=== PATIENT | female | born 1975 | race Hispanic/Latino ===

== ENCOUNTER 2018-12-04 12:31 | Inpatient (IN) | payer SELFPAY ==
[~2018-12-04] VITALS: Ht 152.4 cm; Wt 83.9 kg
[2018-12-04] MEDS: SODIUM CHLORIDE 0.9% 1000ML 1,000 ML IV SCH (02:15)
[2018-12-04] MEDS ORDERED: SODIUM CHLORIDE 0.9% 1000ML 1,000 ML IV STA ×2 (12:51→13:51)
[2018-12-04] MEDS ORDERED: KETOROLAC TROMETHAMINE 30 MG/ML VIAL IV ONE (13:00)
[2018-12-04 13:22] LABS: BASOPHILS % 0.1 % (0.0-1.0); EOSINOPHILS # (AUTO) 0.1 (0.0-0.4); EOSINOPHILS % 0.2 % (0.0-6.0); HEMATOCRIT 29.9 % (34.2-44.1); HEMOGLOBIN 8.9 g/dL (12.0-16.0); LYMPHOCYTES # (AUTO) 0.8 (1.0-3.2); LYMPHOCYTES % 3.3 % (18.0-39.1); MEAN CORPUSCULAR HEMOGLOBIN 19.3 pg (28-32); MEAN CORPUSCULAR HGB CONC 29.8 g/dL (31-35); MONOCYTES # (AUTO) 1.3 (0.2-0.8); MONOCYTES % 5.4 % (4.4-11.3); PLATELET COUNT 313 x10e3/uL (140-360); RED CELL DISTRIBUTION WIDTH 17.4 % (11.7-14.4)
[2018-12-04 13:25] LABS: BILIRUBIN,URINE NEGATIVE (NEGATIVE); CLARITY,URINE SL CLOUDY (CLEAR); COLOR,URINE YELLOW (YELLOW); KETONES,URINE NEGATIVE (NEGATIVE); LEUKOCYTE ESTERASE ,URINE SMALL (NEGATIVE); NITRITE,URINE POSITIVE (NEGATIVE); PROTEIN,URINE DIPSTICK TRACE (NEGATIVE); URINE UROBILINOGEN 0.2 mg/dL (0.2 - 1)
[2018-12-04] MEDS ORDERED: ACETAMINOPHEN 325 MG TAB PO ONE (13:30)
[2018-12-04 13:33] LABS: STREPTOCOCCUS GRP A ANTIGEN NEGATIVE (NEGATIVE)
[2018-12-04 13:37] LABS: AMORPHOUS SEDIMENT,URINE MODERATE (FEW); BACTERIA,URINE MANY /HPF; EPITHELIAL CELLS,URINE MODERATE /LPF; RBC,URINE 0-5 /HPF (0-5)
[2018-12-04 13:38] LABS: ALANINE AMINOTRANSFERASE 20 IU/L (0-55); ALBUMIN 3.6 g/dL (3.5-5.0); ALBUMIN/GLOBULIN RATIO 0.8 (0.8-2.0); ALKALINE PHOSPHATASE 107 IU/L (40-150); ANION GAP 17.4 mmol/L (8-16); BLOOD UREA NITROGEN 6 mg/dL (7-26); BUN/CREATININE RATIO 7 (6-25); CARBON DIOXIDE 20 mmol/L (22-29); CHLORIDE 94 mmol/L (98-107); CREATINE KINASE 41 IU/L (29-168); CREATININE, SERUM 0.81 mg/dL (0.57-1.11); EST GLOMERULAR FILTRATION RATE > 60 ML/MIN (60-); GLUCOSE 165 mg/dL (74-118); POTASSIUM 3.4 mmol/L (3.5-5.1); SODIUM 128 mmol/L (136-145)
[2018-12-04 13:44] LABS: INFLUENZAE A&B ANTIGEN (RAPID) NEGATIVE (NEGATIVE)
--- NOTE | 2018-12-04 13:45 | Diagnostic Imaging Report ---
Examination: CT BRAIN WO CONTRAST History:Headache and weakness Comparison studies:None Technique: Axial images were obtained from the skull base to the vertex. Coronal and sagittal images reconstructed from the axial data. Dose modulation, iterative reconstruction, and/or weight based adjustment of the mA/kV was utilized to reduce the radiation dose to as low as reasonably achievable. Intravenous contrast: None Findings: Scalp: No abnormalities. Bones: No fractures, blastic or lytic lesions. Brain sulci: Appropriate for age. Ventricles: Normal in size and configuration. No hydrocephalus. Extra-axial space: No abnormalities. Parenchyma: No abnormal densities. No masses, hemorrhage, or acute or chronic cortical based vascular insults.. Sellar/suprasellar region: No abnormalities. Craniocervical junction: Patent foramen magnum. No Chiari one malformation. Incidental findings: None. Impression: No intracranial abnormalities. Signed by: Dr. Carol Longoria M.D. on 12/04/2018 1:41 PM
--- NOTE | 2018-12-04 13:51 | Diagnostic Imaging Report ---
EXAMINATION: CHEST SINGLE (PORTABLE) INDICATION: Pain COMPARISON: None FINDINGS: TUBES and LINES: EKG leads overlie the chest. LUNGS: The lung volumes are normal. No focal consolidation or pulmonary edema. PLEURA: No pleural effusion or pneumothorax. HEART AND MEDIASTINUM: The cardiomediastinal silhouette is normal in size and contour. BONES AND SOFT TISSUES: No acute fracture or dislocation. UPPER ABDOMEN: No free air under the diaphragm. IMPRESSION: No focal pneumonia or pulmonary edema. Signed by: Erica Linares MD on 12/04/2018 1:47 PM
[2018-12-04] MEDS ORDERED: METOCLOPRAMIDE HCL 10 MG/2ML VIAL IV ONE (14:00)
[2018-12-04] MEDS ORDERED: CEFTRIAXONE SOD 1 GM VIAL IV ONE (14:00)
--- NOTE | 2018-12-04 14:06 | NUR ---
Lab contacted to draw Lactic
[2018-12-04] MEDS ORDERED: CEFTRIAXONE SOD 2 GM/NS 100 ML 100 ML IV ONE (14:30)
[2018-12-04] MEDS ORDERED: VANCOMYCIN 1GM/NS 250 ML 250 ML IV ONE (15:00)
[2018-12-04] MEDS ORDERED: LIDOCAINE HCL 1% LOCAL INJ 20 ML VIAL ONE (15:16)
[2018-12-04] MEDS ORDERED: ONDANSETRON HCL INJ 2MG/ML 2ML 2 MG/ML VIAL IV PRN (15:30)
[2018-12-04] MEDS ORDERED: DIPHENHYDRAMINE HCL INJ 50 MG/ML VIAL IV PRN (15:30)
--- OUTSIDE RECORDS SUMMARY | 2018-12-04 15:38 | XMS REPORT ---
[facility] Address Unknown Phone Unavailable Care Team Providers [facility] Name Role Phone Bianka PALACIOS Unavailable Unavailable Problems This patient has no known problems. Allergies, Adverse Reactions, Alerts This patient has no known allergies or adverse reactions. Medications This patient has no known medications. Results Test Description Test Time Test Comments Text Results Atomic Results Result Comments CHEST SINGLE (PORTABLE) 2018-12-04 13:46:00 [place] [address] Patient Name: DAMEON BUCK MR #: [id number] : 1975 Age/Sex: 43/F Req #: [id number] Adm Physician: Ordered by: BRUNO QUEEN TUMBLERS SUPERVISOR Report #: [id number] Location: ER Room/Bed: Procedure: [id number] DX/CHEST SINGLE (PORTABLE) Exam Date: Exam Time: REPORT STATUS: Signed EXAMINATION: CHEST SINGLE (PORTABLE) INDICATION: Pain COMPARISON: None FINDINGS: TUBES and LINES: EKG leads overlie the chest. LUNGS: The lung volumes are normal. No focal consolidation or pulmonary edema. PLEURA: No pleural effusion or pneumothorax. HEART AND MEDIASTINUM: The cardiomediastinal silhouette is normal in size and contour. BONES AND SOFT TISSUES: No acute fracture or dislocation. UPPER ABDOMEN: No free air under the diaphragm. IMPRESSION: No focal pneumonia or pulmonary edema. Signed by: Doug Linares MD on 12/04/2018 1:47 PM Dictated By: DOUG LINARES MD 134 Transcribed By: ERIC on 12/04/187 COPY TO: BRUNO QUEEN TUMBLERS SUPERVISOR CT BRAIN WO 2018-12-04 13:41:00 [place] [address] Patient Name: DAMEON BUCK MR #: [id number] : 1975 Age/Sex: 43/F Req #: [id number] Adm Physician: Ordered by: BRUNO QUEEN TUMBL[employer] SUPERVISOR Report #: [id number] Location: ER Room/Bed: Procedure: [id number] CT/CT BRAIN WO Exam Date: 12/04/18 Exam Time: 1320 REPORT STATUS: Signed Examination: CT BRAIN WO CONTRAST History:Headache and weakness Comparison studies:None Technique: Axial images were obtained from the skull base to the vertex. Coronal and sagittal images reconstructed from the axial data. Dose modulation, iterative reconstruction, and/or weight based adjustment of the mA/kV was utilized to reduce the radiation dose to as low as reasonably achievable. Intravenous contrast: None Findings: Scalp: No abnormalities. Bones: No fractures, blastic or lytic lesions. Brain sulci: Appropriate for age. Ventricles: Normal in size and configuration. No hydrocephalus. Extra-axial space: No abnormalities. Parenchyma: No abnormal densities. No masses, hemorrhage, or acute or chronic cortical based vascular insults.. Sellar/suprasellar region: No abnormalities. Craniocervical junction: Patent foramen magnum. No Chiari one malformation. Incidental findings: None. Impression: No intracranial abnormalities. Signed by: Dr. Carol Longoria M.D. on 019 1:41 PM Dictated By: CAROL HEATH MD 40 Transcribed By: ERIC on 12/04/181340 COPY TO: BRUNO QUEEN NP
[2018-12-04 15:51] LABS: TOTAL PROTEIN,CSF 19.6 mg/dL (15-40)
[2018-12-04 15:59] LABS: APPEARANCE,CSF CLEAR (CLEAR); COLOR,CSF COLORLESS (COLORLESS); TUBE NUMBER 3
[2018-12-04 16:00] LABS: WHITE BLOOD CELL,CSF 1 cells/uL (0-5)
[2018-12-04 16:57] LABS: ANISOCYTOSIS SLIGHT; BAND NEUTROPHILS % (MANUAL) 1 %; HYPOCHROMASIA SLIGHT; LYMPHOCYTES % (MANUAL) 6 % (19-48); MONOCYTES % (MANUAL) 4 % (3.4-9.0); NEUTROPHILS % (MANUAL) 88 % (40-74)
[2018-12-04 16:58] LABS: PLATELET ESTIMATE ADEQUATE; PLATELET MORPHOLOGY COMMENT NORMAL; RBC MORPHOLOGY COMMENT NORMAL
[2018-12-04] MEDS: FAMOTIDINE 20 MG/2 ML VIAL IV SCH (17:04)
[2018-12-04 17:44] VITALS: BP 91/49
[2018-12-04] MEDS ORDERED: SEROQUEL25 MG PO (18:16)
[2018-12-04] MEDS ORDERED: PLAQUENIL200 MG PO (18:16)
[2018-12-04] MEDS ORDERED: AMBIEN10 MG PO (18:16)
--- NOTE | 2018-12-04 19:30 | NUR ---
Pt visited in room during nursing rounds. Patient alert and oriented x3. Pt ambulatory in room prn. IVF (NS at 125ml/hr) infusing. Pt on scheduled IV antibiotic. Call ceron within reach. Will monitor closely.
[2018-12-04 20:00] VITALS: BP 121/60
[2018-12-04] MEDS: CEFTRIAXONE SOD 1 GM/NS 50 ML 50 ML IV SCH (20:45)
[2018-12-04] MEDS ORDERED: CEFTRIAXONE SOD 1 GM VIAL IV SCH (21:00)
[2018-12-04] MEDS: IBUPROFEN 200 MG TAB PO PRN (22:20)
[2018-12-05] VITALS (8 sets, daily range): BP systolic 93–119; BP diastolic 55–62
[2018-12-05 06:25] LABS: BASOPHILS % 0.1 % (0.0-1.0); EOSINOPHILS # (AUTO) 0.1 (0.0-0.4); EOSINOPHILS % 0.4 % (0.0-6.0); HEMATOCRIT 26.9 % (34.2-44.1); HEMOGLOBIN 7.6 g/dL (12.0-16.0); LYMPHOCYTES # (AUTO) 1.4 (1.0-3.2); MEAN CORPUSCULAR HGB CONC 28.3 g/dL (31-35); MEAN CORPUSCULAR VOLUME 67.1 fL (81-99); MONOCYTES # (AUTO) 1.7 (0.2-0.8); MONOCYTES % 6.2 % (4.4-11.3); NEUTROPHILS # (AUTO) 23.4 (2.1-6.9); NEUTROPHILS % 86.8 % (38.7-80.0); PLATELET COUNT 253 x10e3/uL (140-360); RED BLOOD COUNT 4.01 x10e6/uL (3.6-5.1); RED CELL DISTRIBUTION WIDTH 17.8 % (11.7-14.4)
[2018-12-05 06:47] LABS: ANION GAP 12.7 mmol/L (8-16); BLOOD UREA NITROGEN 7 mg/dL (7-26); BUN/CREATININE RATIO 9 (6-25); CALCIUM 8.1 mg/dL (8.4-10.2); CARBON DIOXIDE 21 mmol/L (22-29); CHLORIDE 104 mmol/L (98-107); CREATININE, SERUM 0.79 mg/dL (0.57-1.11); EST GLOMERULAR FILTRATION RATE > 60 ML/MIN (60-); GLUCOSE 96 mg/dL (74-118); POTASSIUM 3.7 mmol/L (3.5-5.1); SODIUM 134 mmol/L (136-145)
[2018-12-05 08:35] LABS: BAND NEUTROPHILS % (MANUAL) 17 %; LYMPHOCYTES % (MANUAL) 7 % (19-48); MONOCYTES % (MANUAL) 4 % (3.4-9.0); NEUTROPHILS % (MANUAL) 71 % (40-74)
[2018-12-05 08:37] LABS: ANISOCYTOSIS MODERATE; PLATELET ESTIMATE ADEQUATE; PLATELET MORPHOLOGY COMMENT NORMAL; POLYCHROMASIA FEW; RBC MORPHOLOGY COMMENT NORMAL
[2018-12-05 08:38] LABS: HYPOCHROMASIA MODERATE; POIKILOCYTOSIS SLIG
[2018-12-05] MEDS: CEFTRIAXONE SOD 1 GM/NS 50 ML 50 ML IV SCH ×2 (08:51→21:08)
[2018-12-05] MEDS: FAMOTIDINE 20 MG/2 ML VIAL IV SCH ×2 (08:51→17:13)
[2018-12-05] MEDS: ACETAMINOPHEN 325 MG TAB PO PRN ×2 (09:59→17:13)
[2018-12-05] MEDS ORDERED: CYMBALTA30 MG PO (10:47)
--- NOTE | 2018-12-05 16:20 | NUR ---
Visit made by the Spiritual Care Department Pastoral Visitor, Neyda Burnett. PV provided pastoral presence, prayer, hospitality, and supportive listening. Pastoral Visitor informed pt/family of the scope of Chronic Care Nurse Services and availability. EMETERIO ARTEAGA [employer] Spiritual Care Department O: [phone] Pager: [phone] ([phone] number calling from)
--- NOTE | 2018-12-05 17:30 | NUR ---
New IV started on right AC 20g and well tolerated. Denies any pain at this time. Continues on IVF 125ml/hr and well tolerated.
[2018-12-05] MEDS: IBUPROFEN 200 MG TAB PO PRN (19:52)
[2018-12-05] MEDS: DULOXETINE HCL 30 MG DELAYED RELEASE PO SCH (21:06)
[2018-12-05] MEDS: ZOLPIDEM TARTRATE 5 MG TAB PO PRN (21:09)
[2018-12-05] MEDS: SODIUM CHLORIDE 0.9% 1000ML 1,000 ML IV SCH (22:25)
[2018-12-06] VITALS (8 sets, daily range): BP systolic 96–131; BP diastolic 55–64
[2018-12-06 06:42] LABS: BASOPHILS % 0.2 % (0.0-1.0); EOSINOPHILS # (AUTO) 0.1 (0.0-0.4); EOSINOPHILS % 0.8 % (0.0-6.0); HEMATOCRIT 23.1 % (34.2-44.1); LYMPHOCYTES # (AUTO) 2.1 (1.0-3.2); LYMPHOCYTES % 12.3 % (18.0-39.1); MEAN CORPUSCULAR VOLUME 65.6 fL (81-99); MONOCYTES # (AUTO) 1.4 (0.2-0.8); MONOCYTES % 8.7 % (4.4-11.3); NEUTROPHILS # (AUTO) 12.8 (2.1-6.9); PLATELET COUNT 225 x10e3/uL (140-360); RED BLOOD COUNT 3.52 x10e6/uL (3.6-5.1); RED CELL DISTRIBUTION WIDTH 17.9 % (11.7-14.4)
--- NOTE | 2018-12-06 06:56 | NUR ---
RECEIVED PATIENT RESTING IN BED. RESPIRATIONS EVEN AND UNLABORED, NO ACUTE DISTRESS NOTED. NO S/S OF PAIN OR DISCOMFORT NOTED AT THIS TIME. FAMILY MEMBER AT BEDSIDE. CALL LIGHT WITHIN REACH. BED IN THE LOWEST POSITION.
[2018-12-06 07:06] LABS: HEMOGLOBIN 6.7 g/dL (12.0-16.0)
[2018-12-06 07:14] LABS: ALANINE AMINOTRANSFERASE 19 IU/L (0-55); ALBUMIN 2.4 g/dL (3.5-5.0); ALBUMIN/GLOBULIN RATIO 0.7 (0.8-2.0); ALKALINE PHOSPHATASE 94 IU/L (40-150); ANION GAP 12.3 mmol/L (8-16); BLOOD UREA NITROGEN 6 mg/dL (7-26); BUN/CREATININE RATIO 9 (6-25); CALCIUM 8.1 mg/dL (8.4-10.2); CARBON DIOXIDE 21 mmol/L (22-29); CHLORIDE 109 mmol/L (98-107); CREATININE, SERUM 0.66 mg/dL (0.57-1.11); EST GLOMERULAR FILTRATION RATE > 60 ML/MIN (60-); GLUCOSE 95 mg/dL (74-118); POTASSIUM 3.3 mmol/L (3.5-5.1); SODIUM 139 mmol/L (136-145)
--- NOTE | 2018-12-06 07:15 | NUR ---
BEDSIDE SHIFT REPORT GIVEN TO ONCOMING NURSE.PT RESTING IN BED WITH NO S/S OF DISTRESS.
--- NOTE | 2018-12-06 07:20 | NUR ---
DR ROACH PAGED AT THIS TIME TO REPORT CRITICAL LAB.
[2018-12-06] MEDS: SODIUM CHLORIDE 0.9% 1000ML 1,000 ML IV SCH ×2 (07:23→23:23)
[2018-12-06] MEDS ORDERED: SODIUM CHLORIDE 0.9% 250ML 250 ML IV NR (07:30)
--- NOTE | 2018-12-06 07:30 | NUR ---
SPOKE WITH DR ROACH NOTIFIED ABOUT HEMOGLOBIN LEVEL.N/O'S RECEIVED AND ENTERED.NOTIFIED ONCOMING NURSE.
[2018-12-06] MEDS ORDERED: POTASSIUM CHLORIDE 20 MEQ TAB CR PO STA (07:41)
[2018-12-06] MEDS ORDERED: POTASSIUM CHLORIDE 20 MEQ TAB CR PO NR (08:00)
[2018-12-06] MEDS: CEFTRIAXONE SOD 1 GM/NS 50 ML 50 ML IV SCH ×2 (08:29→21:00)
[2018-12-06] MEDS: FAMOTIDINE 20 MG/2 ML VIAL IV SCH (08:29)
[2018-12-06] MEDS: ACETAMINOPHEN 325 MG TAB PO PRN ×2 (10:11→20:13)
[2018-12-06] MEDS ORDERED: SODIUM CHLORIDE 0.9% 250ML 250 ML ONE (10:46)
[2018-12-06 14:57] LABS: HEMATOCRIT 27.3 % (34.2-44.1); HEMOGLOBIN 8.2 g/dL (12.0-16.0)
[2018-12-06] MEDS ORDERED: ONDANSETRON HCL 4 MG ORAL DISINTEGRATING TAB PO PRN (17:15)
[2018-12-06] MEDS ORDERED: FAMOTIDINE 20 MG TAB PO SCH (17:30)
[2018-12-06] MEDS ORDERED: IBUPROFEN 400 MG TAB PO PRN (17:30)
[2018-12-06] MEDS ORDERED: KETOROLAC TROMETHAMINE 30 MG/ML VIAL IM STA (17:37)
[2018-12-06] MEDS ORDERED: KETOROLAC TROMETHAMINE 30 MG/ML VIAL IM PRN (17:45)
--- NOTE | 2018-12-06 17:45 | NUR ---
NOTIFIED DR. ROACH THAT WE ARE UNABLE TO GET IV ACCESS FOR PATIENT. PER MD ORDER PICC LINE. ORDER PLACED. PATIENT SIGNED CONSENT.
[2018-12-06] MEDS ORDERED: KETOROLAC TROMETHAMINE 30 MG/ML VIAL IV PRN (18:45)
--- NOTE | 2018-12-06 19:26 | NUR ---
REPORT GIVEN TO ONCOMING NURSE. WALKING ROUNDS DONE. PATIENT IS RESTING IN BED. NO ACUTE DISTRESS NOTED. FAMILY AT BEDSIDE. CALL LIGHT WITHIN REACH. BED IN THE LOWEST POSITION.
[2018-12-06] MEDS: DULOXETINE HCL 30 MG DELAYED RELEASE PO SCH (20:11)
[2018-12-06] MEDS: ZOLPIDEM TARTRATE 5 MG TAB PO PRN (21:12)
[2018-12-07] VITALS: BP 92/54
[2018-12-07 03:50] VITALS: BP 95/52
--- NOTE | 2018-12-07 06:15 | Diagnostic Imaging Report ---
EXAMINATION: CHEST XRAY LINE PLACEMENT INDICATION: picc placement COMPARISON: Chest radiograph 12/04/2018 FINDINGS: AP view TUBES and LINES: Left upper extremity PICC placement with tip in the cavoatrial junction. LUNGS: Low lung volumes with vascular crowding. No consolidation. PLEURA: No pleural effusion or pneumothorax. HEART AND MEDIASTINUM: The cardiomediastinal silhouette is unremarkable. BONES AND SOFT TISSUES: No acute osseous lesion. Soft tissues are unremarkable. UPPER ABDOMEN: No free air under the diaphragm. IMPRESSION: Left upper extremity PICC placement with tip in the cavoatrial junction. Low lung volumes with vascular crowding. Signed by: Ralf Monteiro DO on 12/07/2018 6:11 AM
[2018-12-07 06:34] LABS: BASOPHILS % 0.2 % (0.0-1.0); EOSINOPHILS # (AUTO) 0.2 (0.0-0.4); EOSINOPHILS % 1.8 % (0.0-6.0); HEMATOCRIT 24.5 % (34.2-44.1); HEMOGLOBIN 7.5 g/dL (12.0-16.0); LYMPHOCYTES # (AUTO) 1.8 (1.0-3.2); LYMPHOCYTES % 17.8 % (18.0-39.1); MEAN CORPUSCULAR HEMOGLOBIN 20.6 pg (28-32); MEAN CORPUSCULAR HGB CONC 30.6 g/dL (31-35); MEAN CORPUSCULAR VOLUME 67.3 fL (81-99); MONOCYTES # (AUTO) 0.8 (0.2-0.8); MONOCYTES % 7.7 % (4.4-11.3); NEUTROPHILS # (AUTO) 7.1 (2.1-6.9); NEUTROPHILS % 71.2 % (38.7-80.0); PLATELET COUNT 235 x10e3/uL (140-360); RED BLOOD COUNT 3.64 x10e6/uL (3.6-5.1); RED CELL DISTRIBUTION WIDTH 19.9 % (11.7-14.4)
--- NOTE | 2018-12-07 06:54 | NUR ---
RECEIVED PATIENT RESTING IN BED WITH HER EYES CLOSED. NO ACUTE DISTRESS NOTED. FAMILY AT BEDSIDE. NO S/S OF PAIN OR DISCOMFORT NOTED AT THIS TIME. CALL LIGHT WITHIN REACH. BED IN THE LOWEST POSITION.
[2018-12-07 07:03] LABS: ALANINE AMINOTRANSFERASE 17 IU/L (0-55); ALBUMIN 2.3 g/dL (3.5-5.0); ALBUMIN/GLOBULIN RATIO 0.7 (0.8-2.0); ALKALINE PHOSPHATASE 85 IU/L (40-150); ANION GAP 12.5 mmol/L (8-16); BLOOD UREA NITROGEN 5 mg/dL (7-26); BUN/CREATININE RATIO 8 (6-25); CALCIUM 7.8 mg/dL (8.4-10.2); CARBON DIOXIDE 21 mmol/L (22-29); CHLORIDE 107 mmol/L (98-107); CREATININE, SERUM 0.59 mg/dL (0.57-1.11); EST GLOMERULAR FILTRATION RATE > 60 ML/MIN (60-); GLUCOSE 85 mg/dL (74-118); POTASSIUM 3.5 mmol/L (3.5-5.1); SODIUM 137 mmol/L (136-145)
--- NOTE | 2018-12-07 07:15 | NUR ---
DURING PHYSICAL ASSESSMENT PATIENT C/O PAIN OF 5/10, ASKED PATIENT IF SHE WOULD LIKE TO GET HER PAIN MEDICATION NOW OR WAIT FOR MORNING MEDICATIONS, PER PATIENT OK TO WAIT UNTIL MORNING MEDICINES.
[2018-12-07 07:55] VITALS: BP 148/95
[2018-12-07 07:57] VITALS: BP 109/58
[2018-12-07 08:04] VITALS: BP 109/58
[2018-12-07] MEDS ORDERED: GABAPENTIN 100 MG CAP PO SCH (09:00)
--- NOTE | 2018-12-07 09:12 | NUR ---
PATIENT REQUESTING TO LEAVE AMA. PER PATIENT HER PAIN IS NOT GETTING BETTER AND MD IS NOT TRYING TO FIGURE OUT WHERE THE PAIN IS COMING FROM. PICC LINE TO LEFT UPPER ARM DCD WITH TIP INTACT, PRESSURE DRESSING APPLIED TO SITE, NO BLEEDING NOTED. PATIENT SIGNED AMA FORM. PATIENT WALKED OUT OF ROOM AT THIS TIME WITH FAMILY MEMBER.
--- NOTE | 2018-12-07 09:14 | NUR ---
DR. ROACH NOTIFIED OF PATIENT LEAVING AGAINST MEDICAL ADVICE.
--- NOTE | 2018-12-07 09:27 | NUR ---
GAVE PACKET OF INFORMATION WITH [facility] [employer] FOR ASSISTANCE WITH LOW TO NO INCOME TO PATIENT. RESOURCES THAT PATIENT MAY BE ABLE TO FOLLOW UP UPON DISCHARGE. PT EDUCATED ON EACH RESOURCE AND UNDERSTANDING HOW TO FOLLOW UP TO SEE IF QUALIFIED FOR EACH RESOURCE.
--- NOTE | 2018-12-11 10:24 | Discharge Summary ---
AMA DIAGNOSIS: Sepsis secondary to urinary tract infection. HISTORY OF PRESENT ILLNESS AND HOSPITAL COURSE: See hospital chart for full details. The patient is a lady, who presented with fever, muscle aches, and headache, where she was brought in and had a cranial CT done and that was unremarkable. Had lumbar tap done that was also unremarkable. She did have evidence of urinary tract infection that did grow out E. coli, so she was placed on IV antibiotics when she presented, which was appropriate for the infection that she had. She would still have evidence of fevers at nighttime, but for the most part of the day she was doing well. She was still complaining of some headache, so I was making adjustments to her medication regimen when I got a call from nursing staff stating she walked out against medical advice. She was frustrated that she was still having the headache, which I had told her that due to her overwhelming illness, whole-body aches and headaches were not uncommon in her LP, and I reassured her about her LP being negative, her cranium CT being negative, but I was in the process of doing further workup which I explained to her and she seemed to be happy with, but then unfortunately hours later the patient left AMA. I tried to call the patient and my staff has tried to call the patient and she has not answered the phone nor returned our call, so I went ahead and called in the appropriate p.o. antibiotic for her urinary tract infection. I am hoping that she picked it up and has taken it, but unfortunately this is the patient's own choice, which was an unwise choice and therefore she left AMA. MD RAHEEM Bird/RADHA /[id number]
== END 2018-12-07 10:23 | disposition left against medical advice (07) | DRG 872 ==
LOC: ER 12:31 → ERHOLD 15:23 → MED/SURG3 17:32 → OBSVTOIN 12-05 15:54
PROVIDERS: ADMIT Internal Medicine; ATTEND Internal Medicine
PROC: 009U3ZX Drainage of Spinal Canal, Percutaneous Approach, Diagnostic (ICD-10-PCS; principal; 2018-12-04)
PROC: 02HV33Z Insertion of Infusion Device into Superior Vena Cava, Percutaneous Approach (ICD-10-PCS; 2018-12-06)
PROC: 30243N1 Transfusion of Nonautologous Red Blood Cells into Central Vein, Percutaneous Approach (ICD-10-PCS; 2018-12-06)
DX: A41.9 Sepsis, unspecified organism (principal); N39.0 Urinary tract infection, site not specified; K92.2 Gastrointestinal hemorrhage, unspecified; B96.20 Unspecified Escherichia coli [E. coli] as the cause of diseases classified elsewhere; G47.00 Insomnia, unspecified; M79.7 Fibromyalgia; R00.0 Tachycardia, unspecified; R51 Headache; D64.9 Anemia, unspecified; E66.9 Obesity, unspecified; Z68.36 Body mass index [BMI] 36.0-36.9, adult
CPT/HCPCS: 36415; 36569; 62270; 70450; 71045; 80048; 80053; 81001; 81025; 82270; 82550; 82553; 82945; 83518; 83605; 83735; 84157; 84484; 85014; 85018; 85025; 86850; 86900; 86920; 87040; 87070; 87086; 87186; 87205; 87400; 89051; 93005; 99284; G0378; J0696; J1885; J2001; J2765; J3370; J7030; J7050; P9016